=== PATIENT | female | born 1975 | race Caucasian/White ===

== ENCOUNTER 2018-05-04 10:06 | Emergency (ER) | payer BC ==
[2018-05-04] MEDS ORDERED: Sodium Chloride 0.9% 1,000 ML IV ONE ×2 (11:00→15:18)
[2018-05-04] MEDS ORDERED: Morphine 4 MG/ML VIAL ONE (11:15)
[2018-05-04] MEDS ORDERED: Sodium Chloride 0.9% 1,000 ML ONE ×2 (11:15→15:27)
[2018-05-04 11:27] LABS: BASO # 0.1 K/uL (0.0-0.2); BASO % 0.6 % (0.0-2.0); EOS # 0.1 K/uL (0.0-0.7); EOS % 0.7 % (0.0-4.0); HEMOGLOBIN 14.8 g/dL (11.0-16.0); LYMPH # 2.4 K/uL (1.0-4.3); LYMPH % 17.8 % (20.0-40.0); MEAN CELL VOLUME 93.1 fL (81.0-99.0); MEAN CORPUSCULAR HEMOGLOBIN 32.1 pg (27.0-31.0); MEAN CORPUSCULAR HGB CONC 34.5 g/dL (33.0-37.0); MEAN PLATELET VOLUME 8.9 fL (7.2-11.7); MONO # 0.8 K/uL (0.0-0.8); NEUT # 10.2 K/uL (1.8-7.0); NEUT % 74.9 % (50.0-75.0); RBC 4.61 Mil/uL (3.80-5.20); RED CELL DISTRIBUTION WIDTH 13.2 % (11.5-14.5); WHITE BLOOD COUNT 13.6 K/uL (4.8-10.8)
[2018-05-04 11:36] LABS: HCG,QUALITATIVE URINE NEGATIVE (NEGATIVE)
[2018-05-04 11:41] LABS: SQUAMOUS EPITHIAL 28 /hpf (0-5); URINE BACTERIA RARE (<OCC); URINE BILIRUBIN NEGATIVE (NEGATIVE); URINE BLOOD 2+ (NEGATIVE); URINE CLARITY Hazy (Clear); URINE GLUCOSE (UA) NORMAL (Normal); URINE LEUKOCYTE ESTERASE 2+ Leu/uL (Negative); URINE PROTEIN NEGATIVE (NEGATIVE); URINE UROBILINOGEN NORMAL mg/dL (0.2-1.0)
[2018-05-04 11:42] LABS: ALB/GLOB RATIO 1.5 (1.0-2.1); ALBUMIN 4.6 g/dL (3.5-5.0); ALT/SGPT 25 U/L (9-52); AST/SGOT 19 U/L (14-36); BLOOD UREA NITROGEN 19 mg/dL (7-17); CALCIUM 9.4 mg/dl (8.6-10.4); GFR AFRICAN-AMERICAN > 60; GFR NON-AFRICAN AMERICAN > 60; LIPASE 118 U/L (23-300)
[2018-05-04 11:47] LABS: URINE COLOR YELLOW (YELLOW)
--- NOTE | 2018-05-04 12:16 | C.PDOC ---
History Of Present Illness <Naheed Vance - Last Filed: 05/04/18 15:46> <Lu Capps - Last Filed: 05/08/18 13:21> 43 y/o female presents to ED with c/o suprapubic pain radiating to low back since this morning, associated with lightheadedness. Patient also reports right eyelid swelling. She denies vomiting, diarrhea, headache, visual changes, fever , vaginal bleeding/discharge, or any other complaints. (JefryLu Kiley) <Naheed Vance - Last Filed: 05/04/18 15:46> History Per: Patient History/Exam Limitations: no limitations Onset/Duration Of Symptoms: Days Current Symptoms Are (Timing): Still Present Severity: Mild Location Of Pain/Discomfort: Suprapubic Radiation Of Pain To:: Back Quality Of Discomfort: "Pain" <JefryLu albright - Last Filed: 05/08/18 13:21> Time Seen by Provider: 05/04/18 10:30 Chief Complaint (Nursing): Abdominal Pain Past Medical History Reviewed: Historical Data, Nursing Documentation, Vital Signs - Medical History PMH: No Chronic Diseases Surgical History: No Surg Hx Family History: States: No Known Family Hx - Social History Hx Tobacco Use: No Hx Alcohol Use: Yes Hx Substance Use: No - Immunization History Hx Tetanus Toxoid Vaccination: Yes Hx Influenza Vaccination: No Hx Pneumococcal Vaccination: No <JefryLu - Last Filed: 05/08/18 13:21> Vital Signs: Last Vital Signs Temp 98.2 F 05/04/18 16:04 Pulse 60 05/04/18 16:04 Resp 18 05/04/18 16:04 BP 123/86 05/04/18 16:04 Pulse Ox 97 05/04/18 16:04 Review Of Systems Constitutional: Negative for: Fever, Chills Eyes: Positive for: Other (right upper eyelid redness, swelling ). Negative for : Pain, Conjunctivae Inflammation Cardiovascular: Positive for: Light Headedness. Negative for: Chest Pain Respiratory: Negative for: Cough, Shortness of Breath Gastrointestinal: Positive for: Abdominal Pain. Negative for: Nausea, Vomiting Genitourinary: Negative for: Dysuria, Vaginal Discharge, Vaginal Bleeding Musculoskeletal: Positive for: Back Pain Skin: Negative for: Rash <Lu Capps - Last Filed: 05/08/18 13:21> Physical Exam - Physical Exam Appears: Well, Non-toxic, Other (In mild pain) Skin: Warm, Dry, No Rash Head: Atraumatic, Normacephalic Eye(s): bilateral: PERRL, EOMI, Eyelid Inflammation (right upper eyelid mildly erythematous and swollne, no vesivular lesions, no eye discharge), left: Normal Inspection Ear(s): Bilateral: Normal Nose: Normal Oral Mucosa: Moist Neck: Normal, Normal ROM, Supple Cardiovascular: Rhythm Regular Respiratory: Normal Breath Sounds, No Rales, No Rhonchi, No Wheezing Gastrointestinal/Abdominal: Bowel Sounds, Soft, Tenderness (mild suprapubic TTP ), No Guarding, No Rebound, Other ((-) McBurney's) Back: No CVA Tenderness Neurological/Psych: Oriented x3, Normal Speech, Normal Cognition Gait: Steady <Lu Capps - Last Filed: 05/08/18 13:21> ED Course And Treatment - Laboratory Results Result Diagrams: 05/04/18 11:23 05/04/18 11:23 <Naheed Vance - Last Filed: 05/04/18 15:46> - Laboratory Results Result Diagrams: 05/04/18 11:23 05/04/18 11:23 O2 Sat by Pulse Oximetry: 98 (RA) Pulse Ox Interpretation: Normal Progress Note: Blood work, UA, Upreg ordered and reviewed. Patient given IV NS bolus, IV morphine, and IV zofran. Reevaluation Time: 12:35 Reassessment Condition: Unchanged (On reassessment, patient still c/o lower abdominal pain. On exam, patient has suprapubic and RLQ TTP. CT scan abd/ pelvis ordered.) <Lu Capps - Last Filed: 05/08/18 13:21> Progress - Data Reviewed Data Reviewed: Lab, Diagnostic imaging, Old records <Naheed Vance - Last Filed: 05/04/18 15:46> <Lu Capps - Last Filed: 05/08/18 13:21> - Re-Evaluation Re-evaluation Note: 05/04/18 14:00 S/O FROM DR CAPPS: NEW ONSET INTERMIT R>LQ PAIN X 1 MO, TODAY AWOKE W MORE INTENSE THAN PRIOR PAIN. +ASSOC "SOUR TASTE". NO FEVER, NVD, CONSTIPATION. NEW ONSET R EYELID PAIN, REDNESS THIS MORNING. NO ITCH. DENIES VISION CHANGE, CONTACT LENS USE. PROCEDURE: R EYE FLUORESCEIN. TETRACAINE APPLIED. FLUORESCEIN STAIN APPLIED, EYE EXAMINED W HERNANDEZ LAMP. NO CORNEAL ABRASION, FB OR SIGNS OF GLOBE TRAUMA. EYE IRRIGATED. PT TOLERATED WELL. CT PENDING 05/04/18 15:47 PERIORB ERYTHEMA, SWELLING IMPROVED COMPARED TO PRIOR. NO EYE SX. CT REPORT REVIEWED. ABX, DC (Naheed Vance) Disposition Counseled Patient/Family Regarding: Studies Performed, Diagnosis, Need For Followup, Rx Given - Disposition Disposition Time: 15:48 <Naheed Vance - Last Filed: 05/04/18 15:46> - Disposition Disposition Time: 13:00 <Lu Capps - Last Filed: 05/08/18 13:21> - Disposition Condition: STABLE Prescriptions: Cefixime [Suprax] 400 mg PO DAILY #14 capsule Ibuprofen [Motrin] 600 mg PO Q6 #30 tab Ondansetron [Zofran Odt] 4 mg PO TID PRN #9 odt PRN Reason: Nausea/Vomiting Phenazopyridine HCl [Pyridium] 200 mg PO BID #6 tablet Instructions: Hives (DC), Kidney Infection (DC) Forms: [facility] (Turkmen), Work Excuse - Clinical Impression Clinical Impression: Abdominal pain, Swollen eyelid <Naheed Vance - Last Filed: 05/04/18 15:46> - Scribe Statement The provider has reviewed the documentation as recorded by the Scribe <Lu Capps - Last Filed: 05/08/18 13:21> - Scribe Statement Jose Martin Aldridge All medical record entries made by the Scribe were at my direction and personally dictated by me. I have reviewed the chart and agree that the record accurately reflects my personal performance of the history, physical exam, medical decision making, and the department course for this patient. I have also personally directed, reviewed, and agree with the discharge instructions and disposition. (Lu Capps) Physician Patient Turnover Patient Signed Over To: Naheed Vance Handoff Comments: patient pending CT scan abd/pelvis <Lu Capps - Last Filed: 05/08/18 13:21>
[2018-05-04] MEDS ORDERED: Tetracaine 0.5% Ophth (OR ONLY) OD ONE (12:29)
[2018-05-04] MEDS ORDERED: Fluorescein 1 mg Ophthalmic Strip OD ONE (12:29)
[2018-05-04] MEDS ORDERED: Tetracaine 0.5% Ophth (OR ONLY) ONE (12:37)
[2018-05-04] MEDS ORDERED: Iodixanol 320 MG/ML 100 ML BOTTLE IV ONE (14:00)
--- NOTE | 2018-05-04 15:00 | CT ---
Date of service: 05/04/2018 PROCEDURE: CT Abdomen and Pelvis with contrast HISTORY: SUPRAPUBIUC, RLQ PAIN COMPARISON: None. TECHNIQUE: Contrast dose: 100 mL Visipaque 320 Radiation dose: Total exam DLP = 429.1 mGy-cm. This CT exam was performed using one or more of the following dose reduction techniques: Automated exposure control, adjustment of the mA and/or kV according to patient size, and/or use of iterative reconstruction technique. FINDINGS: LOWER THORAX: Unremarkable. LIVER: Hepatic steatosis. No gross lesion or ductal dilatation. GALLBLADDER AND BILE DUCTS: Unremarkable. PANCREAS: Unremarkable. No gross lesion or ductal dilatation. SPLEEN: Unremarkable. ADRENALS: Unremarkable. No mass. KIDNEYS AND URETERS: Right upper pole 1.2 cm cyst. Tiny focus of inhomogeneous enhancement in the right upper/mid pole (series 3, image 59). No hydronephrosis. No solid mass. VASCULATURE: Unremarkable. No aortic aneurysm. BOWEL: Unremarkable. No obstruction. No gross mural thickening. APPENDIX: Normal appendix. PERITONEUM: Unremarkable. No free fluid. No free air. LYMPH NODES: Unremarkable. No enlarged lymph nodes. BLADDER: Unremarkable. REPRODUCTIVE: Unremarkable. BONES: No acute fracture. OTHER FINDINGS: None. IMPRESSION: Tiny focus of inhomogeneous enhancement in the right upper/ midpole cortex for which acute pyelonephritis cannot be excluded.
[2018-05-04] MEDS ORDERED: cefTRIAXone IV 1 gm in Dextros 50 ML IVPB ONE (15:27)
[2018-05-04] MEDS ORDERED: cefTRIAXone IV 1 gm in Dextros 50 ML IVPB SCH (15:30)
[2018-05-04] MEDS ORDERED: cefTRIAXone IV 1 gm in Dextros 50 ML IVPB STA (15:39)
[2018-05-04 16:05] VITALS: BP 123/86; PULSE 60; RESP 18; TEMP 98.2
[2018-05-08 13:17] VITALS: O2SAT 98
== END 2018-05-04 16:50 | disposition home or self-care (01) ==
LOC: C.ER 10:06
DX: R10.30 Lower abdominal pain, unspecified (principal); H02.89 Other specified disorders of eyelid
CPT/HCPCS: 74177; 80053; 81001; 83690; 84703; 85025; 87086; 96361; 96374; 96375; 99285; J0696; J1885; J2270; J2405; J7030; Q9967